=== PATIENT | male | born 1985 | race Caucasian/White ===

== ENCOUNTER 2016-12-20 03:08 | Emergency (ER) | payer MEDICAID ==
[~2016-12-20] VITALS: Ht 182.9 cm; Wt 105.0 kg
[~2016-12-20 03:08] MED LIST: CARB200T PO; LEVE100020 PO; RISP4TAB34 PO
[2016-12-20] MEDS ORDERED: LEVETIRACETAM 1,000 MG in SODIUM CHLORIDE 0.9% 100 ML IV ONE (04:00)
[2016-12-20] MEDS ORDERED: GABA100C8 PO (04:02)
[2016-12-20] MEDS ORDERED: LITHIUM (04:03)
[2016-12-20] MEDS ORDERED: KLONOPIN (04:04)
[2016-12-20] MEDS ORDERED: KEPPRA (04:06)
[2016-12-20 04:12] LABS: HEMOGLOBIN 15.3 g/dL (13.7-18.0)
[2016-12-20 04:17] VITALS: BP 107/72
[2016-12-20 04:23] LABS: BLOOD UREA NITROGEN 18 mg/dL (7-18)
[2016-12-20] MEDS ORDERED: LITH300C PO (05:14)
[2016-12-20] MEDS ORDERED: CLON1TAB23 PO (05:15)
[2016-12-20] MEDS ORDERED: [UNRECOGNIZED DRUG - OTHER] (05:17)
[2016-12-20] MEDS ORDERED: LEVE750T37 PO (05:17)
[2016-12-20] MEDS ORDERED: LEVODOPA (05:17)
[2016-12-20] MEDS ORDERED: ZOLP-413 PO (05:18)
== END 2016-12-20 05:13 | disposition home or self-care (01) ==
LOC: MERGE 03:49 → ED 03:49
DX: G40.309 Generalized idiopathic epilepsy and epileptic syndromes, not intractable, without status epilepticus (principal)
CPT/HCPCS: 36415; 80048; 82040; 85025; 93005; 96374; 99285; J1953

== ENCOUNTER 2017-01-26 12:44 | Emergency (ER) | payer MEDICAID ==
[~2017-01-26] VITALS: Ht 182.9 cm; Wt 102.7 kg
[~2017-01-26 12:44] MED LIST changes: +CLON1TAB23 PO; +GABA100C8 PO; +KEPPRA; +KLONOPIN; +LEVE750T37 PO; +LEVODOPA; +LITH300C PO; +LITHIUM; +ZOLP-413 PO; +[UNRECOGNIZED DRUG - OTHER]
[2017-01-26] MEDS ORDERED: ZOLP-413 PO (14:28)
[2017-01-26] MEDS ORDERED: CHLO10CA6 PO (14:28)
[2017-01-26] MEDS ORDERED: CARB1TAB3 PO (14:28)
[2017-01-26 15:17] VITALS: BP 138/91
== END 2017-01-26 15:20 | disposition home or self-care (01) ==
LOC: ED 14:39
DX: Z76.0 Encounter for issue of repeat prescription (principal); R56.9 Unspecified convulsions; G40.909 Epilepsy, unspecified, not intractable, without status epilepticus; F20.9 Schizophrenia, unspecified; F12.10 Cannabis abuse, uncomplicated
CPT/HCPCS: 99283

== ENCOUNTER 2017-09-15 12:47 | Emergency (ER) | payer MEDICAID, OTHER ==
[~2017-09-15] VITALS: Ht 180.3 cm; Wt 150.0 kg
[~2017-09-15 12:47] MED LIST changes: +CARB1TAB3 PO; +CHLO10CA6 PO; +GABA-826 PO; -GABA100C8 PO
[2017-09-15] MEDS ORDERED: SODIUM CHLORIDE FLUSH 10ML SYR IVF ONE (13:00)
[2017-09-15 13:32] LABS: HEMATOCRIT 44.5 % (39.2-51.8); HEMOGLOBIN 15.5 g/dL (13.7-18.0); WHITE BLOOD COUNT 7.3 x10^3/uL (3.4-10)
[2017-09-15 13:44] LABS: BLOOD UREA NITROGEN 15 mg/dL (7-18)
[2017-09-15] MEDS ORDERED: LORazepam 2 MG/ML, 1ML IVPush ONE (14:00)
[2017-09-15] MEDS ORDERED: PHENYTOIN SODIUM 1,000 MG in SODIUM CHLORIDE 0.9% 100 ML IVPB ONE (14:00)
[2017-09-15] MEDS ORDERED: FILTER 0.22 MICRON IV ONE (14:00)
[2017-09-15] MEDS ORDERED: DOCUSATE 100 MG CAPSULE PO PRN (15:00)
[2017-09-15] MEDS ORDERED: POLYETHYLENE GLYCOL 17 GM PACKET PO PRN (15:00)
[2017-09-15] MEDS ORDERED: LEVETIRACETAM 1,000 MG in SODIUM CHLORIDE 0.9% 100 ML IV ONE (15:00)
[2017-09-15] MEDS ORDERED: BISACODYL 10 MG SUPP PR PRN (15:00)
[2017-09-15] MEDS ORDERED: LORazepam 2 MG/ML, 1ML IVPush PRN (15:00)
[2017-09-15] MEDS ORDERED: ONDANSETRON 2MG/ML, 2ML IVPush PRN (15:00)
[2017-09-15] MEDS ORDERED: HYDROcodone/APAP 5/325 TABLET PO PRN (15:00)
[2017-09-15] MEDS ORDERED: LABETALOL 5MG/ML, 20ML IVPush PRN (15:00)
[2017-09-15] MEDS ORDERED: ENALAPRILAT 1.25 MG/ML, 2ML IVPush PRN (15:00)
[2017-09-15] MEDS ORDERED: ACETAMINOPHEN 325 MG TABLET PO PRN (15:00)
[2017-09-15 16:01] VITALS: BP 147/99
[2017-09-15] MEDS ORDERED: PHENYTOIN SODIUM 50 MG/ML, 2ML IVPush SCH (21:00)
[2017-09-16] MEDS ORDERED: LEVETIRACETAM 500 MG in SODIUM CHLORIDE 0.9% 100 ML IV SCH (06:00)
== END 2017-09-15 17:15 ==
LOC: ED 14:09 → EDIP 14:10 → UNDOADMIN 14:10 → ED 17:15
DX: R56.9 Unspecified convulsions (principal); F41.1 Generalized anxiety disorder; G40.909 Epilepsy, unspecified, not intractable, without status epilepticus; F17.210 Nicotine dependence, cigarettes, uncomplicated; Z87.820 Personal history of traumatic brain injury; Z88.0 Allergy status to penicillin; F25.9 Schizoaffective disorder, unspecified
CPT/HCPCS: 36415; 70450; 80048; 82040; 83605; 84146; 85025; 93005; 95816; 96365; 96375; 99285; J1165; J2060